=== PATIENT | male | born 1995 | race Caucasian/White ===

== ENCOUNTER 2017-08-02 14:22 | Emergency (ER) | payer OTHER ==
[~2017-08-02] VITALS: Ht 190.5 cm; Wt 76.2 kg
[2017-08-02 14:32] VITALS: Ht 190.5 cm; Wt 76.2 kg
[2017-08-02] MEDS ORDERED: SODIUM CHLORIDE 0.9% 1000ML 1,000 ML IV ONE (15:00)
--- NOTE | 2017-08-02 15:12 | EMERGENCY ROOM VISIT NOTE ---
History First contact with patient: 14:39 Chief Complaint: OTHER COMPLAINT Stated Complaint: CHEST PAIN RESULT FROM MIXING DRUGS History of Present Illness The patient is a 21 year old male who presents to the Emergency Room with complaints of chest pain. The patient states that he was in [place] last week on his spring break. He reports taking multiple illict substances throughout the trip. He states taking Xanax 0.5 - 2 mg one to two times daily. In addition there were a few occasions where he snorted cocaine and ritalin. He took a pill of unknown substance early on the trip, questions whether it was amphetamine. In addition , he smoked marjiuana and states that it may have been mixed with muscle relaxant. Furthermore, he reports alcohol consumption throughout the trip. He returned from his trip 2 days ago. He states since then he has had some mild 4/10 discomfort on the left side of his chest. He thinks it may radiate to the left arm. No radiation to the neck or back. The pain is worse with exertion and better with rest. He denies any shortness of breath, coughing or wheezing. He denies any fevers, chills or sweats. His symptoms are associated with fatigue and poor appetite. He has not had much to eat or drink in the past 2 days. He has no diarrheal symptoms. Review of Systems A 10 point review of systems was negative unless stated above. Past Medical/Surgical History None Family History No known family history Social History Smoking Status: Current Some Day Smoker Smokeless Tobacco Use: No Alcohol Use: occasionally Drug Use: marijuana, other (cocaine, amphetamine, benzodiazepines) Marital Status: single Housing Status: lives with roommate Occupation Status: student Current/Historical Medications No Active Prescriptions or Reported Meds Allergies NKDA Physical Exam Vital Signs Date Time Temp Pulse Resp B/P (MAP) Pulse Ox O2 Delivery O2 Flow Rate FiO2 08/02/17 17:03 36.9 69 20 137/77 100 08/02/17 16:33 69 20 136/79 100 Room Air 137/77 08/02/17 15:14 72 08/02/17 14:32 36.9 88 20 150/87 100 Room Air Pain Rating (0-10): 4 Physical Exam Constitutional: Vital signs as above were reviewed. Eyes: Pupils equal, round, and reactive to light. Extraocular muscles are intact. No proptosis. No photophobia. ENT: Mucous membranes are moist. Oropharynx is clear. Cardiovascular: Heart with a regular rate and rhythm. Pulses are palpable and symmetric in all 4 extremities. No pedal edema appreciated. No chest wall tenderness Respiratory: Lungs clear to auscultation bilaterally. No wheezes, rales, or rhonchi appreciated. No accessory muscle use. No retractions. No increased work of breathing. GI: Abdomen soft, nontender, nondistended. Normal active bowel sounds. No abdominal hernias appreciated. No rebound. No guarding. No organomegaly : No CVA tenderness appreciated. Musculoskeletal: No midline cervical or vertebral tenderness. No gross deformities. No bony tenderness. No calf swelling or tenderness. Integumentary: Warm, dry, no rashes appreciated. Neurological: Patient awake, alert, and oriented x 3. Motor 5 out of 5 strength bilateral upper and lower extremities. Lymph: No cervical lymphadenopathy appreciated. Medical Decision & Procedures ER Provider Diagnostic Interpretation: [~ rep ct add3]] CHEST ONE VIEW PORTABLE HISTORY: 21 years-old Male chest pain acute atypical chest pain COMPARISON: None available TECHNIQUE: Portable AP view of the chest FINDINGS: Cardiomediastinal and hilar silhouettes are within normal limits. No pneumothorax, pleural effusion, focal airspace consolidation or overt pulmonary edema. The bones of the chest appear grossly intact. IMPRESSION: No acute process. The above report was generated using voice recognition software. It may contain grammatical, syntax or spelling errors. Electronically signed by: Jett Clifford M.D. 08/02/2017 3:17 PM Dictated Date/Time: 08/02/2017 3:16 PM The status of this report is Signed. Draft = Not yet reviewed or approved by Radiologist. Signed = Reviewed and approved by Radiologist. Laboratory Results 08/02/17 15:22 Red Blood Count 5.30, Mean Corpuscular Volume 86.6, Mean Corpuscular Hemoglobin 30.4, Mean Corpuscular Hemoglobin Concent 35.1, Mean Platelet Volume 9.4, Neutrophils (%) (Auto) 80.0, Lymphocytes (%) (Auto) 12.9, Monocytes (%) (Auto) 5.0, Eosinophils (%) (Auto) 1.6, Basophils (%) (Auto) 0.4, Neutrophils # (Auto) 6.46, Lymphocytes # (Auto) 1.04, Monocytes # (Auto) 0.40, Eosinophils # (Auto) 0.13, Basophils # (Auto) 0.03 08/02/17 15:22 Test 08/02/17 14:43 08/02/17 15:22 08/02/17 16:28 Urine Opiates Screen NEG (NEG) Urine Methadone, Qualitative NEG (NEG) Urine Barbiturates NEG (NEG) Urine Phencyclidine (PCP) Level NEG (NEG) Ur Amphetamine/Methamphetamine NEG (NEG) MDMA (Ecstasy) Screen NEG (NEG) Urine Benzodiazepines Screen POS (NEG) Urine Cocaine Metabolite NEG (NEG) Urine Marijuana (THC) POS (NEG) White Blood Count 8.07 K/uL (4.8-10.8) Red Blood Count 5.30 M/uL (4.7-6.1) Hemoglobin 16.1 g/dL (14.0-18.0) Hematocrit 45.9 % (42-52) Mean Corpuscular Volume 86.6 fL (80-100) Mean Corpuscular Hemoglobin 30.4 pg (25-34) Mean Corpuscular Hemoglobin Concent 35.1 g/dl (32-36) Platelet Count 202 K/uL (130-400) Mean Platelet Volume 9.4 fL (7.4-10.4) Neutrophils (%) (Auto) 80.0 % Lymphocytes (%) (Auto) 12.9 % Monocytes (%) (Auto) 5.0 % Eosinophils (%) (Auto) 1.6 % Basophils (%) (Auto) 0.4 % Neutrophils # (Auto) 6.46 K/uL (1.4-6.5) Lymphocytes # (Auto) 1.04 K/uL (1.2-3.4) Monocytes # (Auto) 0.40 K/uL (0.11-0.59) Eosinophils # (Auto) 0.13 K/uL (0-0.5) Basophils # (Auto) 0.03 K/uL (0-0.2) RDW Standard Deviation 40.3 fL (36.4-46.3) RDW Coefficient of Variation 12.6 % (11.5-14.5) Immature Granulocyte % (Auto) 0.1 % Immature Granulocyte # (Auto) 0.01 K/uL (0.00-0.02) Anion Gap 5.0 mmol/L (3-11) Est Creatinine Clear Calc Drug Dose 149.4 ml/min Estimated GFR () 145.4 Estimated GFR (Non- 125.4 BUN/Creatinine Ratio 8.5 (10-20) Calcium Level 9.5 mg/dl (8.5-10.1) Total Bilirubin 1.2 mg/dl (0.2-1) Direct Bilirubin 0.3 mg/dl (0-0.2) Aspartate Amino Transf (AST/SGOT) 13 U/L (15-37) Alanine Aminotransferase (ALT/SGPT) 28 U/L (12-78) Alkaline Phosphatase 77 U/L (45-117) Total Creatine Kinase 66 U/L (39-308) Creatine Kinase MB 1.6 ng/ml (0.5-3.6) Creatine Kinase MB Ratio 2.4 (0-3.0) Troponin I < 0.015 ng/ml (0-0.045) Total Protein 8.2 gm/dl (6.4-8.2) Albumin 4.3 gm/dl (3.4-5.0) Medications Administered Medications (Trade) Dose Ordered Sig/Gia Route Start Time Stop Time Status Last Admin Dose Admin Sodium Chloride 1,000 ml @ 999 mls/hr Q1H1M ONCE IV 08/02/17 15:00 08/02/17 16:00 DC 08/02/17 15:25 999 MLS/HR ECG Per My Interpretation Indication: chest pain Rhythm: normal sinus (rate72) Comparison ECG Date: no prior available ED Course 14:50 - Seen by myself 15:05 - Labs: CBC, BMP, Liver profile, Troponin, CK, Urine Drug Screen, EKG, CXR 15:45 - Discussed case with Dr. Ventura who will see and assess the patient separately. 16:15 - Studies reviewed: normal EKG, negative CXR, negative troponin. 16:30 - BP 130/70s in both extremities. Decision made with Dr. Ventura to discharge the patient. Discussed discharge and follow-up with PCP/[facility]. Patient agreeable Medical Decision Patient presents with chest pain after poly-substance use. The differential includes drug-induced PA, aortic dissection, pneumonia, pneumothorax, rib fracture, costochondritis or GERD. He did have marijuana and benzodiazepines on urine drug screen. Patient is tall, though not with kaur marfanoid features indicate evaluation for dissection. Patients BP is mildly elevated on admission but recovered to 130/70s in both extremities again going against a diagnosis of arotic dissection. His cardiac work-up was negative including normal EKG, negative chest x-ray and negative troponin x 1. Given his shoulder pains, I also opted to check CPK to drug-induced myositis which was also negative. The decision was made to discharge the patient home and have him follow-up. He was advised of the results and encouraged to abstain from drug-use and monitor symptoms. He is advised to see his PCP or [facility] within 1 week to follow-up on symptoms. The patient was discharged in stable condition. Head Trauma GCS Score: 15 Medication Reconcilliation Current Medication List: was personally reviewed by me Blood Pressure Screening Patient's blood pressure: Normal blood pressure Impression Primary Impression: Atypical chest pain Additional Impression: Polysubstance (excluding opioids) dependence, binge pattern Departure Information Dispostion Home / Self-Care Condition GOOD Prescriptions No Active Prescriptions or Reported Meds Referrals No Doctor, Assigned (PCP) Patient Instructions [facility] Additional Instructions You had an evaluation for chest pain in the ER. Your labs, EKG and chest x-ray was normal. We feel you can be discharged home. Please take Tylenol or Motrin for your pain and discomfort. Please stay hydrated. We strongly advise that you abstain from drug use from here forward. Drug use and cause worsening heart function. If your pain does not improve, please see your primary care provider. They will decide if you require additional studies. If your symptoms fail to improve, acutely worsen, please seek medical attention immediately by either calling your primary care provider or going to your nearest emergency department. Otherwise, please see your primary care provider within 1 week to ensure that your symptoms continue to improve. It was a pleasure to be involved in your care and we wish you all the best. Problem Qualifiers
--- NOTE | 2017-08-02 15:19 | DIAGNOSTIC IMAGING REPORT ---
CHEST ONE VIEW PORTABLE HISTORY: 21 years-old Male chest pain acute atypical chest pain COMPARISON: None available TECHNIQUE: Portable AP view of the chest FINDINGS: Cardiomediastinal and hilar silhouettes are within normal limits. No pneumothorax, pleural effusion, focal airspace consolidation or overt pulmonary edema. The bones of the chest appear grossly intact. IMPRESSION: No acute process. The above report was generated using voice recognition software. It may contain grammatical, syntax or spelling errors. Electronically signed by: Jett Clifford M.D. 08/02/2017 3:17 PM Dictated Date/Time: 08/02/2017 3:16 PM
--- NOTE | 2017-08-02 15:33 | EMERGENCY ROOM VISIT NOTE ---
ED Visit Note First contact with patient: 14:39 Resident Physician Supervision Note: I was present with Dr. Arita during the history and exam. I discussed the case with the resident and agree with the findings and plan as documented in the note. Documented By: Junior Ventura
[2017-08-02 15:39] LABS: BASO % 0.4 %; BASO ABS # 0.03 K/uL (0-0.2); EOS % 1.6 %; EOS ABS # 0.13 K/uL (0-0.5); HEMATOCRIT 45.9 % (42-52); HEMOGLOBIN 16.1 g/dL (14.0-18.0); IG# 0.01 K/uL (0.00-0.02); LYMPH % 12.9 %; LYMPH ABS # 1.04 K/uL (1.2-3.4); MEAN CELL VOLUME 86.6 fL (80-100); MEAN CORPUSCULAR HEMOGLOBIN 30.4 pg (25-34); MEAN CORPUSCULAR HGB CONC 35.1 g/dl (32-36); MEAN PLATELET VOLUME 9.4 fL (7.4-10.4); NEUT ABS # 6.46 K/uL (1.4-6.5); PLATELET COUNT 202 K/uL (130-400); RED CELL DISTRIBUTION WIDTH CV 12.6 % (11.5-14.5); RED CELL DISTRIBUTION WIDTH SD 40.3 fL (36.4-46.3); WHITE BLOOD COUNT 8.07 K/uL (4.8-10.8)
[2017-08-02 16:01] LABS: ALBUMIN 4.3 gm/dl (3.4-5.0); ALT/SGPT 28 U/L (12-78); BLOOD UREA NITROGEN 7 mg/dl (7-18); CALCIUM 9.5 mg/dl (8.5-10.1); CARBON DIOXIDE 29 mmol/L (21-32); CREATININE 0.85 mg/dl (0.60-1.40); GLUCOSE 99 mg/dl (70-99); POTASSIUM 3.8 mmol/L (3.5-5.1); SODIUM 137 mmol/L (136-145)
[2017-08-02 16:07] LABS: ALKALINE PHOSPHATASE 77 U/L (45-117); AST/SGOT 13 U/L (15-37); CKMB 1.6 ng/ml (0.5-3.6); TOTAL PROTEIN 8.2 gm/dl (6.4-8.2)
[2017-08-02 17:03] VITALS: BP 137/77; PULSE 69; TEMP 36.9; O2SAT 100
== END 2017-08-02 17:03 | disposition home or self-care (01) ==
LOC: C.EDB 14:25 → C.EDA 17:03
DX: R07.89 Other chest pain (principal); F19.20 Other psychoactive substance dependence, uncomplicated; F17.210 Nicotine dependence, cigarettes, uncomplicated